=== PATIENT | female | born 1960 | race African-American/Black ===

== ENCOUNTER 2018-11-22 07:24 | Emergency (ER) | payer BC, MEDICAID ==
[~2018-11-22] VITALS: Ht 167.6 cm; Wt 70.0 kg
[2018-11-22] MEDS ORDERED: OMEP10CA5 PO (07:33)
[2018-11-22] MEDS ORDERED: FAMOTIDINE 20MG/2ML VIAL IV STA (08:09)
[2018-11-22] MEDS ORDERED: ONDANSETRON HCL 4MG/2ML INJ IV STA (08:09)
[2018-11-22] MEDS ORDERED: MORPHINE SULFATE 4 MG/ML CPJ (NOT FOR IM USE) IV STA (08:09)
[2018-11-22] MEDS ORDERED: SODIUM CHLORIDE 0.9% 1,000 ML IV ONE (08:09)
[2018-11-22 08:29] LABS: BASOPHILS % 0.7 % (0.0-2.0); HEMATOCRIT. 38.8 % (36.0-48.0); HEMOGLOBIN. 13.1 g/dL (12.0-16.0); LYMPHOCYTES % 13.5 % (20.0-50.0); MEAN CORPUSCULAR VOLUME 85.9 fL (81.0-99.0); MEAN PLATELET VOLUME 9.7 fl (7.4-10.4); MONOCYTES % 2.9 % (2.0-8.0); NEUTROPHILS % 82.9 % (40.0-76.0); PLATELET 353 x1000/uL (130-400); RED BLOOD CELL COUNT 4.52 mill/uL (4.2-5.4); RED CELL DISTRIBUTION WIDTH 13.9 % (11.6-14.6)
[2018-11-22 08:36] LABS: CHLORIDE 101 mEq/L (98-107)
[2018-11-22] MEDS ORDERED: METOCLOPRAMIDE HCL 10MG/2ML VIAL IV ONE (09:30)
[2018-11-22] MEDS ORDERED: MORPHINE SULFATE 4 MG/ML CPJ (NOT FOR IM USE) IV ONE (09:30)
[2018-11-22 12:03] LABS: CLARITY URINE CLEAR (CLEAR); COLOR URINE DARK YELLOW (YELLOW); KETONES URINE NEGATIVE (NEGATIVE); LEUKOCYTE ESTERASE URINE NEGATIVE (NEGATIVE); NITRITE URINE NEGATIVE (NEGATIVE); OCCULT BLOOD URINE TRACE (NEGATIVE); PH URINE 5.5 (4.5-8.0); PROTEIN URINE NEGATIVE (NEGATIVE); SPECIFIC GRAVITY URINE 1.017 (1.005-1.030)
[2018-11-22 12:15] VITALS: BP 141/66
== END 2018-11-22 12:44 | disposition home or self-care (01) ==
LOC: ER 07:24
DX: K29.70 Gastritis, unspecified, without bleeding (principal); R79.89 Other specified abnormal findings of blood chemistry; I10 Essential (primary) hypertension; Z88.0 Allergy status to penicillin; Z88.5 Allergy status to narcotic agent; Z91.041 Radiographic dye allergy status
CPT/HCPCS: 36415; 80053; 81003; 83690; 85025; 96361; 96374; 96375; 96376; 99283; J2270; J2405; J2765; J3490; J7030; Z7610

== ENCOUNTER 2019-01-21 10:33 | Inpatient (IN) | payer MEDICAID ==
[~2019-01-21] VITALS: Ht 162.6 cm; Wt 86.2 kg
[~2019-01-21 10:33] MED LIST: OMEP10CA5 PO
[2019-01-21] MEDS ORDERED: SODIUM CHLORIDE 0.9% 1,000 ML IV ONE (10:41)
[2019-01-21] MEDS ORDERED: ONDANSETRON HCL 4MG/2ML INJ IV STA (10:41)
[2019-01-21] MEDS ORDERED: FAMOTIDINE 20MG/2ML VIAL IV STA (10:41)
[2019-01-21] MEDS ORDERED: MORPHINE SULFATE 4 MG/ML CPJ (NOT FOR IM USE) IV ONE ×3 (11:30→15:30)
[2019-01-21] MEDS ORDERED: LORAZEPAM 2MG/ML CPJ IV ONE (11:30)
[2019-01-21 11:42] LABS: BASOPHILS % 0.7 % (0.0-2.0); EOSINOPHILS % 0.1 % (0.0-5.0); HEMATOCRIT. 36.3 % (36.0-48.0); HEMOGLOBIN. 12.4 g/dL (12.0-16.0); LYMPHOCYTES % 17.4 % (20.0-50.0); MEAN CORPUSCULAR HEMOGLOBIN 29.2 pg (28.0-32.0); MEAN CORPUSCULAR VOLUME 85.7 fL (81.0-99.0); MEAN PLATELET VOLUME 8.7 fl (7.4-10.4); MONOCYTES % 3.5 % (2.0-8.0); NEUTROPHILS % 78.3 % (40.0-76.0); PLATELET 285 x1000/uL (130-400); RED BLOOD CELL COUNT 4.24 mill/uL (4.2-5.4); RED CELL DISTRIBUTION WIDTH 13.9 % (11.6-14.6)
[2019-01-21 11:49] LABS: CHLORIDE 106 mEq/L (98-107); PROTHROMBIN TIME 10.1 sec (9.6-11.0)
[2019-01-21 12:12] LABS: CLARITY URINE CLEAR (CLEAR); COLOR URINE YELLOW (YELLOW); KETONES URINE NEGATIVE (NEGATIVE); LEUKOCYTE ESTERASE URINE NEGATIVE (NEGATIVE); NITRITE URINE NEGATIVE (NEGATIVE); OCCULT BLOOD URINE NEGATIVE (NEGATIVE); PH URINE 7.5 (4.5-8.0); PROTEIN URINE NEGATIVE (NEGATIVE); SPECIFIC GRAVITY URINE 1.013 (1.005-1.030); UROBILINOGEN URINE 0.2 E.U./dL (0.2-1.0)
[2019-01-21] MEDS ORDERED: KCL 20MEQ/100ML PREMIX 100 ML IV ONE (12:45)
[2019-01-21] MEDS ORDERED: ONDANSETRON HCL 4MG/2ML INJ IV ONE (15:30)
[2019-01-21] MEDS ORDERED: NA PHOS,M-B/NA PHOS,DI-BA ENEMA 118ML PR PRN (16:45)
[2019-01-21] MEDS ORDERED: DIPHENHYDRAMINE 50MG/ML VIAL IV PRN (16:45)
[2019-01-21] MEDS ORDERED: ACETAMINOPHEN 325MG TABLET PO PRN (16:45)
[2019-01-21] MEDS ORDERED: ACETAMINOPHEN 650MG SUPP PR PRN (16:45)
[2019-01-21] MEDS ORDERED: GUAIFENESIN 200MG/10ML SUGAR FREE UDC PO PRN (16:45)
[2019-01-21] MEDS ORDERED: LORAZEPAM 0.5MG TABLET PO PRN (16:45)
[2019-01-21] MEDS ORDERED: DOCUSATE SODIUM 100MG CAPSULE PO PRN (16:45)
[2019-01-21] MEDS ORDERED: HYDRALAZINE 20MG/ML VIAL IV PRN (16:45)
[2019-01-21] MEDS ORDERED: POTASSIUM CHLORIDE INJ 40 MEQ in DEXT 5% WATER 250 ML IV NR (16:45)
[2019-01-21] MEDS ORDERED: CLONIDINE 0.1MG TABLET PO PRN (16:45)
[2019-01-21] MEDS ORDERED: IPRATROPIUM/ALBUTEROL 0.5-3(2.5)MG/3ML NEB NEB PRN (16:45)
[2019-01-21] MEDS ORDERED: LEVOFLOXACIN 500MG PREMIX 100 ML IV NR (18:30)
[2019-01-21] MEDS ORDERED: METRONIDAZOLE 500 MG PREMIX 100 ML IV NR (18:30)
[2019-01-21] MEDS: FAMOTIDINE 20MG/2ML VIAL IV SCH (18:46)
[2019-01-21 20:00] VITALS: BP 153/56
[2019-01-21] MEDS ORDERED: HYDRALAZINE 10 MG in DEXTROSE 5% WATER 50 ML IV PRN (22:00)
[2019-01-21] MEDS: ONDANSETRON HCL 4MG/2ML INJ IV PRN (22:06)
[2019-01-21] MEDS: MORPHINE SULFATE 2 MG/ML CPJ (NOT FOR IM USE) IV PRN (22:07)
[2019-01-21] MEDS ORDERED: METRONIDAZOLE 500 MG PREMIX 100 ML IV SCH (23:00)
[2019-01-21] MEDS ORDERED: HYDR25TA MT (23:08)
[2019-01-21] MEDS ORDERED: OMEP20TA15 PO (23:08)
[2019-01-21 23:25] VITALS: BP 153/56
[2019-01-22] VITALS: BP 152/66
[2019-01-22 00:02] LABS: CHLORIDE 104 mEq/L (98-107)
[2019-01-22] MEDS: METRONIDAZOLE 500 MG PREMIX 100 ML IV SCH ×3 (00:32→14:56)
[2019-01-22] MEDS: HYDROCODONE/ACETAMINOPHEN 5/325MG TABLET PO PRN ×3 (00:36→17:55)
[2019-01-22 04:00] VITALS: BP 126/66
[2019-01-22 07:38] LABS: *AMPHETAMINES SCREEN URINE NEGATIVE (NEGATIVE); *BARBITURATES SCREEN URINE NEGATIVE (NEGATIVE); *BENZODIAZEPINES SCREEN URINE NEGATIVE (NEGATIVE)
[2019-01-22 07:39] LABS: *COCAINE SCREEN URINE NEGATIVE (NEGATIVE); METHADONE URINE SCREEN NEGATIVE (NEGATIVE); OPIATES URINE SCREEN NEGATIVE (NEGATIVE); PHENCYCLIDINE URINE SCREEN NEGATIVE (NEGATIVE)
[2019-01-22 07:40] LABS: CANNABINOID URINE SCREEN NEGATIVE (NEGATIVE)
[2019-01-22] MEDS: DEXT 5%/0.45% NACL 1000ML 1,000 ML IV SCH (07:50)
[2019-01-22 08:00] VITALS: BP 115/59
[2019-01-22] MEDS: FAMOTIDINE 20MG/2ML VIAL IV SCH (08:57)
[2019-01-22] MEDS: ENOXAPARIN 40MG/0.4ML SYR SUBCUT SCH (08:58)
[2019-01-22] MEDS: ONDANSETRON HCL 4MG/2ML INJ IV PRN ×2 (09:00→17:55)
[2019-01-22] MEDS: MORPHINE SULFATE 2 MG/ML CPJ (NOT FOR IM USE) IV PRN ×3 (09:37→20:12)
[2019-01-22 10:24] LABS: BASOPHILS % 0.3 % (0.0-2.0); EOSINOPHILS % 0.2 % (0.0-5.0); HEMATOCRIT. 36.6 % (36.0-48.0); HEMOGLOBIN. 12.1 g/dL (12.0-16.0); LYMPHOCYTES % 21.9 % (20.0-50.0); MEAN CORPUSCULAR HEMOGLOBIN 28.6 pg (28.0-32.0); MONOCYTES % 6.9 % (2.0-8.0); NEUTROPHILS % 70.7 % (40.0-76.0); PLATELET 276 x1000/uL (130-400); RED BLOOD CELL COUNT 4.25 mill/uL (4.2-5.4); RED CELL DISTRIBUTION WIDTH 13.6 % (11.6-14.6)
[2019-01-22 10:26] LABS: CHLORIDE 108 mEq/L (98-107)
[2019-01-22 10:34] LABS: LDL CHOLESTEROL 149 mg/dL (5-100)
[2019-01-22 10:35] LABS: HDL CHOLESTEROL 91 mg/dL (40-59); T4 FREE 0.98 ng/dL (0.76-1.46)
[2019-01-22 12:00] VITALS: BP 143/62
[2019-01-22] MEDS: PANTOPRAZOLE SODIUM 40 MG/VIAL IV SCH ×2 (14:56→20:12)
[2019-01-22 15:50] VITALS: BP 121/51
[2019-01-22] MEDS: MAGNESIUM/ALUMINUM HYDROXIDE/SIMETHICONE 30ML UDC PO PRN (17:56)
[2019-01-22] MEDS ORDERED: LEVOFLOXACIN 500MG PREMIX 100 ML IV SCH ×2 (18:00)
[2019-01-22 20:00] VITALS: BP 104/42
[2019-01-22] MEDS: ATORVASTATIN CALCIUM 40MG TABLET PO SCH (20:13)
[2019-01-22] MEDS ORDERED: POTASSIUM CHLORIDE 20MEQ TABLET SR PO NR (21:30)
[2019-01-23] VITALS: BP 129/61
[2019-01-23] MEDS: HYDROCODONE/ACETAMINOPHEN 5/325MG TABLET PO PRN ×2 (00:16→11:27)
[2019-01-23] MEDS: METRONIDAZOLE 500 MG PREMIX 100 ML IV SCH ×4 (00:16→23:12)
[2019-01-23] MEDS: MORPHINE SULFATE 2 MG/ML CPJ (NOT FOR IM USE) IV PRN ×3 (04:42→21:03)
[2019-01-23 08:00] VITALS: BP_SYST 116; BP_SYST 118; BP_DIAS 56; BP_DIAS 64
[2019-01-23] MEDS: PANTOPRAZOLE SODIUM 40 MG/VIAL IV SCH ×2 (08:44→20:20)
[2019-01-23] MEDS: ENOXAPARIN 40MG/0.4ML SYR SUBCUT SCH (08:44)
[2019-01-23 09:36] LABS: BASOPHILS % 0.8 % (0.0-2.0); EOSINOPHILS % 1.6 % (0.0-5.0); HEMATOCRIT. 32.3 % (36.0-48.0); HEMOGLOBIN. 10.9 g/dL (12.0-16.0); LYMPHOCYTES % 29.4 % (20.0-50.0); MEAN CORPUSCULAR HEMOGLOBIN 29.1 pg (28.0-32.0); MEAN CORPUSCULAR VOLUME 86.3 fL (81.0-99.0); MEAN PLATELET VOLUME 9.1 fl (7.4-10.4); MONOCYTES % 7.8 % (2.0-8.0); NEUTROPHILS % 60.4 % (40.0-76.0); PLATELET 239 x1000/uL (130-400); RED BLOOD CELL COUNT 3.74 mill/uL (4.2-5.4); RED CELL DISTRIBUTION WIDTH 13.9 % (11.6-14.6)
[2019-01-23 09:43] LABS: CHLORIDE 109 mEq/L (98-107)
[2019-01-23] MEDS: DEXT 5%/0.45% NACL 1000ML 1,000 ML IV SCH (11:00)
[2019-01-23 12:00] VITALS: BP_SYST 122; BP_SYST 123; BP_DIAS 56; BP_DIAS 60
[2019-01-23 16:00] VITALS: BP 133/55
[2019-01-23] MEDS ORDERED: LEVOFLOXACIN 500MG TABLET PO SCH (18:00)
[2019-01-23 20:00] VITALS: BP 118/67
[2019-01-23] MEDS: ONDANSETRON HCL 4MG/2ML INJ IV PRN (20:21)
[2019-01-23] MEDS: ATORVASTATIN CALCIUM 40MG TABLET PO SCH (21:07)
[2019-01-23] MEDS: DEXT 5%/0.45% NACL KCL 20MEQ/L 1,000 ML IV SCH (23:13)
[2019-01-24] VITALS: BP 167/73
[2019-01-24] MEDS: HYDROMORPHONE HCL/PF 2MG/ML CPJ IV PRN ×4 (03:06→22:36)
[2019-01-24 04:00] VITALS: BP 121/50
[2019-01-24 06:37] LABS: BASOPHILS % 0.6 % (0.0-2.0); HEMATOCRIT. 33.2 % (36.0-48.0); HEMOGLOBIN. 11.2 g/dL (12.0-16.0); LYMPHOCYTES % 19.9 % (20.0-50.0); MEAN CORPUSCULAR HEMOGLOBIN 29.1 pg (28.0-32.0); MEAN CORPUSCULAR VOLUME 86.2 fL (81.0-99.0); MEAN PLATELET VOLUME 9.3 fl (7.4-10.4); MONOCYTES % 7.2 % (2.0-8.0); NEUTROPHILS % 71.3 % (40.0-76.0); PLATELET 235 x1000/uL (130-400); RED BLOOD CELL COUNT 3.85 mill/uL (4.2-5.4); RED CELL DISTRIBUTION WIDTH 13.5 % (11.6-14.6)
[2019-01-24 06:52] LABS: CHLORIDE 109 mEq/L (98-107)
[2019-01-24] MEDS ORDERED: CEFOXITIN SODIUM 2 G in DEXT 5% WATER 100 ML IV STA (06:59)
[2019-01-24] MEDS ORDERED: SKIN ADHESIVE 0.7 GM EA TOP ONE (07:00)
[2019-01-24] MEDS: DEXT 5%/0.45% NACL KCL 20MEQ/L 1,000 ML IV SCH ×2 (07:00→15:05)
[2019-01-24] MEDS ORDERED: BUPIVACAINE HCL/PF 0.5% (5MG/ML) 10ML ONE (07:01)
[2019-01-24] MEDS ORDERED: BACITRACIN 50,000 UNITS/VIAL ONE (07:01)
[2019-01-24] MEDS ORDERED: LIDOCAINE HCL 1% 20ML VIAL (Pyxis) INJ ONE (07:01)
[2019-01-24] MEDS ORDERED: NORMAL SALINE 0.9% 10 ML SYR ONE (07:01)
[2019-01-24] MEDS ORDERED: FENTANYL CITRATE/PF 50MCG/ML 2ML VIAL ONE ×5 (07:49→09:13)
[2019-01-24] MEDS ORDERED: PROPOFOL 200MG/20ML VIAL IV ONE (07:50)
[2019-01-24] MEDS ORDERED: CEFAZOLIN SODIUM 1000MG/VIAL ONE (07:50)
[2019-01-24] MEDS ORDERED: SODIUM CHLORIDE 0.9% 10ML VIAL ONE (07:50)
[2019-01-24] MEDS ORDERED: EPHEDRINE SULFATE 50MG/ML VIAL ONE (07:50)
[2019-01-24] MEDS ORDERED: ONDANSETRON HCL 4MG/2ML INJ ONE (07:50)
[2019-01-24] MEDS ORDERED: DEXAMETHASONE 4MG/ML 1ML VIAL ONE (07:50)
[2019-01-24] MEDS ORDERED: NEOSTIGMINE METHYLSULFATE 1MG/ML 10 ML VIAL ONE (07:50)
[2019-01-24] MEDS ORDERED: GLYCOPYRROLATE 0.2 MG/ML 2ML VIAL ONE (07:50)
[2019-01-24] MEDS ORDERED: ROCURONIUM BROMIDE 10MG/ML VIAL 5ML IV ONE (07:50)
[2019-01-24] MEDS ORDERED: SUCCINYLCHOLINE CHLORIDE 200MG/10ML IV ONE (07:50)
[2019-01-24] MEDS ORDERED: LIDOCAINE HCL/PF 1% 10 MG/ML 5ML VIAL ONE (07:50)
[2019-01-24] MEDS ORDERED: MIDAZOLAM HCL 2 MG/2 ML VIAL ONE (07:50)
[2019-01-24] MEDS ORDERED: PHENYLEPHRINE HCL 10 MG/ML 1ML (IV VIAL) IV ONE (07:51)
[2019-01-24] MEDS ORDERED: METOCLOPRAMIDE HCL 10MG/2ML VIAL ONE (07:51)
[2019-01-24] MEDS: METRONIDAZOLE 500 MG PREMIX 100 ML IV SCH (08:00)
[2019-01-24] MEDS: PANTOPRAZOLE SODIUM 40 MG/VIAL IV SCH ×2 (08:01→20:12)
[2019-01-24] MEDS ORDERED: SODIUM CHLORIDE 0.9% 1,000 ML IV ONE (09:07)
[2019-01-24] MEDS ORDERED: ONDANSETRON HCL 4MG/2ML INJ IV PRN (09:15)
[2019-01-24] MEDS ORDERED: MORPHINE SULFATE 2 MG/ML CPJ (NOT FOR IM USE) IV PRN (09:15)
[2019-01-24] MEDS ORDERED: HYDROMORPHONE HCL/PF 2MG/ML CPJ IV PRN (09:15)
[2019-01-24] MEDS ORDERED: MEPERIDINE HCL/PF 25MG/ML CPJ IV PRN ×2 (09:15)
[2019-01-24] MEDS ORDERED: LABETALOL HCL 5MG/ML VIAL 20ML IV ONE (09:29)
[2019-01-24] MEDS ORDERED: ALBUTEROL (0.083%) 2.5MG/3ML NEB HHN NR (11:00)
[2019-01-24 12:00] VITALS: BP 149/69
[2019-01-24 16:00] VITALS: BP 168/83
[2019-01-24 20:00] VITALS: BP 170/72
[2019-01-24] MEDS: ATORVASTATIN CALCIUM 40MG TABLET PO SCH (20:12)
[2019-01-25] VITALS: BP 140/52
[2019-01-25] MEDS: DEXT 5%/0.45% NACL KCL 20MEQ/L 1,000 ML IV SCH ×3 (02:34→15:00)
[2019-01-25] MEDS: HYDROMORPHONE HCL/PF 2MG/ML CPJ IV PRN ×3 (02:35→17:31)
[2019-01-25 04:00] VITALS: BP 140/56
[2019-01-25] MEDS: MAGNESIUM/ALUMINUM HYDROXIDE/SIMETHICONE 30ML UDC PO PRN ×2 (06:07→11:01)
[2019-01-25 08:00] VITALS: BP 136/60
[2019-01-25 08:15] LABS: CHLORIDE 109 mEq/L (98-107)
[2019-01-25 08:21] LABS: BASOPHILS % 0.2 % (0.0-2.0); HEMOGLOBIN. 10.3 g/dL (12.0-16.0); LYMPHOCYTES % 13.5 % (20.0-50.0); MEAN CORPUSCULAR HEMOGLOBIN 29.6 pg (28.0-32.0); MEAN CORPUSCULAR VOLUME 85.9 fL (81.0-99.0); MEAN PLATELET VOLUME 9.7 fl (7.4-10.4); MONOCYTES % 5.2 % (2.0-8.0); NEUTROPHILS % 81.1 % (40.0-76.0); PLATELET 245 x1000/uL (130-400); RED BLOOD CELL COUNT 3.49 mill/uL (4.2-5.4); RED CELL DISTRIBUTION WIDTH 13.8 % (11.6-14.6)
[2019-01-25] MEDS: PANTOPRAZOLE SODIUM 40 MG/VIAL IV SCH (08:54)
[2019-01-25] MEDS: ENOXAPARIN 40MG/0.4ML SYR SUBCUT SCH (09:00)
[2019-01-25 12:00] VITALS: BP 126/55
[2019-01-25 13:15] LABS: SACCHAROMYCES CEREVISIAE IGG 40.4 Units (0.0-24.9); SACCHAROMYCES CEREVISIAE IGM <20.0 Units (0.0-24.9)
[2019-01-25 16:00] VITALS: BP 141/69
[2019-01-25] MEDS: METRONIDAZOLE 500 MG PREMIX 100 ML IV SCH (17:00)
[2019-01-25] MEDS ORDERED: LEVOFLOXACIN 500MG PREMIX 100 ML IV SCH (17:00)
[2019-01-25 17:08] LABS: ATYPICAL pANCA <1:20 titer (Neg:<1:20)
[2019-01-25 20:00] VITALS: BP 129/54
[2019-01-25] MEDS: FAMOTIDINE 20MG/2ML VIAL IV SCH (20:14)
[2019-01-25] MEDS: LEVOFLOXACIN 500MG PREMIX 100 ML IV SCH (20:15)
[2019-01-25] MEDS ORDERED: ATORVASTATIN CALCIUM 20MG TABLET PO SCH (21:00)
[2019-01-26] VITALS: BP 139/68
[2019-01-26] MEDS: DEXT 5%/0.45% NACL KCL 20MEQ/L 1,000 ML IV SCH (00:09)
[2019-01-26] MEDS: METRONIDAZOLE 500 MG PREMIX 100 ML IV SCH ×3 (00:10→18:28)
[2019-01-26] MEDS: HYDROMORPHONE HCL/PF 2MG/ML CPJ IV PRN ×4 (00:30→20:46)
[2019-01-26 04:00] VITALS: BP 134/59
[2019-01-26 07:14] LABS: BASOPHILS % 0.4 % (0.0-2.0); EOSINOPHILS % 0.6 % (0.0-5.0); HEMATOCRIT. 29.3 % (36.0-48.0); HEMOGLOBIN. 9.8 g/dL (12.0-16.0); MEAN CORPUSCULAR HEMOGLOBIN 28.9 pg (28.0-32.0); MEAN CORPUSCULAR VOLUME 86.9 fL (81.0-99.0); MEAN PLATELET VOLUME 9.1 fl (7.4-10.4); MONOCYTES % 7.4 % (2.0-8.0); NEUTROPHILS % 67.6 % (40.0-76.0); PLATELET 246 x1000/uL (130-400); RED BLOOD CELL COUNT 3.38 mill/uL (4.2-5.4); RED CELL DISTRIBUTION WIDTH 14.1 % (11.6-14.6)
[2019-01-26 07:44] LABS: CHLORIDE 107 mEq/L (98-107)
[2019-01-26 08:00] VITALS: BP 143/54
[2019-01-26] MEDS: FAMOTIDINE 20MG/2ML VIAL IV SCH ×2 (08:10→20:40)
[2019-01-26] MEDS: ENOXAPARIN 40MG/0.4ML SYR SUBCUT SCH (08:10)
[2019-01-26 12:00] VITALS: BP 151/62
[2019-01-26 15:04] LABS: CLARITY URINE CLEAR (CLEAR); COLOR URINE YELLOW (YELLOW); KETONES URINE NEGATIVE (NEGATIVE); LEUKOCYTE ESTERASE URINE NEGATIVE (NEGATIVE); NITRITE URINE NEGATIVE (NEGATIVE); OCCULT BLOOD URINE NEGATIVE (NEGATIVE); PH URINE 7.5 (4.5-8.0); PROTEIN URINE NEGATIVE (NEGATIVE); SPECIFIC GRAVITY URINE 1.007 (1.005-1.030); UROBILINOGEN URINE 0.2 E.U./dL (0.2-1.0)
[2019-01-26] MEDS: ONDANSETRON HCL 4MG/2ML INJ IV PRN (15:42)
[2019-01-26 16:00] VITALS: BP 123/75
[2019-01-26] MEDS ORDERED: METRONIDAZOLE 500 MG PREMIX 100 ML IV SCH (16:30)
[2019-01-26 16:45] LABS: BG BASE EXCESS 0.7 mmol/L (-2.0-2.0); BG DEOXYHEMOGLOBIN 5.6 % (0.0-5.0); BG HCO3 ACT 24.3 mmol/L (22.0-26.0); BG METHEMOGLOBIN 0.2 % (0.0-1.5); BG OXYGEN SATURATION 94.4 % (92.0-98.5); BG OXYHEMOGLOBIN 94.2 % (94.0-97.0); BG PCO2 35.3 mmHg (35.0-45.0); BG PH 7.456 (7.350-7.450); BG PO2 68.8 mmHg (75.0-100.0); BG SAMPLE SITE RIGHT BRACHIAL; BG VENT MODE ROOM AIR
[2019-01-26 19:52] LABS: HEPATITIS A AB IGM NEGATIVE (NEGATIVE)
[2019-01-26 20:00] VITALS: BP 148/52
[2019-01-26] MEDS: LEVOFLOXACIN 500MG PREMIX 100 ML IV SCH (20:41)
[2019-01-27] VITALS: BP 124/69
[2019-01-27] MEDS: METRONIDAZOLE 500 MG PREMIX 100 ML IV SCH ×2 (00:58→08:26)
[2019-01-27 04:00] VITALS: BP 129/70
[2019-01-27] MEDS: DEXT 5%/0.45% NACL KCL 20MEQ/L 1,000 ML IV SCH (06:12)
[2019-01-27 08:00] VITALS: BP 140/50
[2019-01-27] MEDS: FAMOTIDINE 20MG/2ML VIAL IV SCH (08:25)
[2019-01-27] MEDS: ENOXAPARIN 40MG/0.4ML SYR SUBCUT SCH (08:26)
[2019-01-27 12:00] VITALS: BP 161/50
[2019-01-27 12:05] LABS: BASOPHILS % 0.8 % (0.0-2.0); EOSINOPHILS % 0.8 % (0.0-5.0); HEMATOCRIT. 32.7 % (36.0-48.0); HEMOGLOBIN. 10.9 g/dL (12.0-16.0); LYMPHOCYTES % 23.9 % (20.0-50.0); MEAN CORPUSCULAR HEMOGLOBIN 28.6 pg (28.0-32.0); MEAN CORPUSCULAR VOLUME 86.3 fL (81.0-99.0); MONOCYTES % 6.8 % (2.0-8.0); NEUTROPHILS % 67.7 % (40.0-76.0); PLATELET 275 x1000/uL (130-400); RED BLOOD CELL COUNT 3.79 mill/uL (4.2-5.4); RED CELL DISTRIBUTION WIDTH 14.3 % (11.6-14.6)
[2019-01-27] MEDS: HYDROMORPHONE HCL/PF 2MG/ML CPJ IV PRN (12:16)
[2019-01-27 12:38] LABS: CHLORIDE 106 mEq/L (98-107)
[2019-01-27 16:00] VITALS: BP 112/64
[2019-01-27 16:52] VITALS: BP 112/64
[2019-01-29 16:45] LABS: HEPATITIS B SURFACE ANTIGEN NEGATIVE
== END 2019-01-27 17:26 | disposition home or self-care (01) | DRG 263 ==
LOC: ER 10:33 → SUPCPDRO 16:10 → 6EST 16:47 → EDBEDREQTM 19:25 → EDBEDREQ 19:25 → ENRESERV 19:46
PROVIDERS: ADMIT Internal Medicine; ATTEND Internal Medicine
PROC: 0FT44ZZ Resection of Gallbladder, Percutaneous Endoscopic Approach (ICD-10-PCS; principal; 2019-01-24)
DX: K80.01 Calculus of gallbladder with acute cholecystitis with obstruction (principal); I27.20 Pulmonary hypertension, unspecified; R18.8 Other ascites; K57.90 Diverticulosis of intestine, part unspecified, without perforation or abscess without bleeding; E87.6 Hypokalemia; I10 Essential (primary) hypertension; E78.5 Hyperlipidemia, unspecified; R73.9 Hyperglycemia, unspecified; B96.81 Helicobacter pylori [H. pylori] as the cause of diseases classified elsewhere; E66.9 Obesity, unspecified; K21.0 Gastro-esophageal reflux disease with esophagitis; K66.0 Peritoneal adhesions (postprocedural) (postinfection); K76.0 Fatty (change of) liver, not elsewhere classified; R50.82 Postprocedural fever; Z88.0 Allergy status to penicillin; Z88.8 Allergy status to other drugs, medicaments and biological substances; Z91.041 Radiographic dye allergy status; Z79.899 Other long term (current) drug therapy; Z68.32 Body mass index [BMI] 32.0-32.9, adult; Z71.3 Dietary counseling and surveillance; R74.0 Nonspecific elevation of levels of transaminase and lactic acid dehydrogenase [LDH]
CPT/HCPCS: 36415; 36600; 71045; 74018; 74176; 74181; 76700; 76705; 78227; 80048; 80061; 80076; 80305; 81003; 82375; 82805; 83036; 83735; 84439; 84443; 84481; 86256; 86671; 86705; 86709; 86803; 87340; 88304; 92610; 93005; 93306; 93970; 94640; 96374; 96375; 97162; 97535; 99285; A9537; C9113; J0330; J0360; J0690; J1100; J1170; J1650; J1956; J2060; J2250; J2270; J2370; J2405; J2704; J2710; J2765; J3010; J3480; J3490; J7030; J7060; J7611